=== PATIENT | male | born 1990 | race Caucasian/White ===

== ENCOUNTER → 2017-12-04 | Outpatient (CLI) | payer BC ==
[~2017-12-04] MED LIST: NORCO 325 MG-51 TAB PO; PERCOCET 325 MG1 TA2 PO; PROZAC 20MG20 MG PO
== END ==
LOC: COL.RAD 10:32
DX: M25.811 Other specified joint disorders, right shoulder (principal)
CPT/HCPCS: A9585; Q9967

== ENCOUNTER → 2018-02-06 | Outpatient (CLI) | payer BC | LOC: COL.VAS 09:47 | DX: Q24.0 Dextrocardia (principal) ==

== ENCOUNTER → 2020-01-17 | Outpatient (CLI) | payer BC | LOC: COL.RAD 12:35 | DX: K57.32 Diverticulitis of large intestine without perforation or abscess without bleeding (principal) ==

== ENCOUNTER → 2024-04-09 | Outpatient (CLI) | payer BC | LOC: COL.VAS 09:03 | DX: Q24.0 Dextrocardia (principal) ==